=== PATIENT | female | born 1980 | race African-American/Black ===

== ENCOUNTER 2019-08-20 13:14 | Outpatient (CLI) | payer MEDICARE, OTHER ==
[~2019-08-20] VITALS: Ht 154.9 cm; Wt 77.1 kg
[2019-08-20 14:29] VITALS: BP 146/86
[2019-08-20] MEDS ORDERED: VITAMIN D 50000 UNIT PO (14:37)
[2019-08-20] MEDS ORDERED: DOCUSATE SODIU100 MG ORAL (14:37)
[2019-08-20] MEDS ORDERED: LINZESS145 MCG PO (14:37)
[2019-08-20] MEDS ORDERED: HYDROCHLOROTH12.5 MG ORAL (14:37)
[2019-08-20] MEDS ORDERED: TOPIRAMATE25 MG ORAL (14:37)
--- NOTE | 2019-08-20 18:00 | Consultation ---
DATE OF CONSULTATION: 08/20/2019 GASTROENTEROLOGY CONSULTATION CONSULTING PHYSICIAN: Pablo Carrasquillo M.D. REFERRING PHYSICIAN: Sarkis Wang M.D. CHIEF COMPLAINT: Abdominal pain, GERD. HISTORY OF PRESENT ILLNESS: This is a very pleasant 39-year-old female with past medical history of severe chronic GERD symptoms and had an endoscopy by . Apparently, I do not have the result. She is here today because of the acid reflux disease and also complained of some constipation. In terms of acid reflux disease, the patient is currently not taking any antacid because the heartburn is infrequent. In terms of constipation, the patient is taking Linzess 145 and also [id number]-[id number] senna, still has problems once a week. PAST MEDICAL HISTORY: 1. History of seizure disorder. 2. 3. Hypertension. 4. History of blood transfusions for anemia. 5. IBS. 6. GERD. 7. Constipation. 8. Gallstones. PAST SURGICAL HISTORY: Cholecystectomy and some kind of bladder surgery. MEDICATIONS: Please see medication reconciliation list. FAMILY HISTORY: Noncontributory. SOCIAL HISTORY: The patient denies any tobacco, alcohol, or IV drug abuse. ALLERGIES: To codeine, latex, and iodine. REVIEW OF SYSTEMS: Positive for GERD, constipation, bloating, and hemorrhoids. PHYSICAL EXAMINATION: VITAL SIGNS: Temperature 98.1, blood pressure 146/82, pulse 88, and respirations 20. HEENT: Normocephalic and atraumatic. Sclerae anicteric. NECK: Supple. No evidence of obvious lymphadenopathy. CARDIOVASCULAR: Regular rhythm. Plus S1, S2. LUNGS: Clear to auscultation bilaterally. ABDOMEN: Positive bowel sounds. Soft and nontender. No rebound. No guarding. No peritoneal sign. EXTREMITIES: No cyanosis. No clubbing. No edema. ASSESSMENT AND PLAN: GERD. At this time, I am going to try to obtain the endoscopy report from . We are going to hold off doing repeat endoscopy given it was done already unless it is needed. Given the patient's symptoms are very infrequent, we are going to hold off giving any antacid or proton-pump inhibitors. The patient was instructed to take [id number] Pepcid as needed. For the constipation, apparently the Linzess has been not working with a combination of the senna. We will plan to add Motegrity 2 mg daily. The patient was given a prescription for that in addition to Linzess and come back in two weeks for followup. The patient also was given prescriptions for Align or VSL#3. I want to thank, Dr. Sarkis Wang, for this kind referral. Pablo Carrasquillo M.D. DR: Kishore JOB#: [id number] CC: Sarkis Wang M.D.; Fax#: [phone]
== END 2019-08-20 16:24 | disposition home or self-care (01) ==
LOC: PAN 13:14
DX: R10.9 Unspecified abdominal pain (principal); K21.9 Gastro-esophageal reflux disease without esophagitis; G40.909 Epilepsy, unspecified, not intractable, without status epilepticus; I10 Essential (primary) hypertension; Z90.49 Acquired absence of other specified parts of digestive tract; Z88.6 Allergy status to analgesic agent; Z91.041 Radiographic dye allergy status; Z91.040 Latex allergy status; K59.00 Constipation, unspecified
CPT/HCPCS: G0463